=== PATIENT | female | born 1995 | race African-American/Black ===

== ENCOUNTER 2019-02-24 09:20 | Inpatient (IN) | payer OTHER ==
[2019-02-24 09:45] VITALS: BMI 21.1
--- NOTE | 2019-02-24 10:53 | HP ---
COWS - Scale Resting Pulse: 0= [place] 80 or Below Sweatin= Chills/Flushing Restless Observation: 3= Extraneous Movement Pupil Size: 0= Normal to Room Light Bone or Joint Aches: 4=Acute Joint/Muscle Pain Runny Nose/ Eye Tearin= Runny Nose/Eyes GI Upset > 30mins: 2= Nausea/Diarrhea Tremor Observation: 0= None Yawning Observation: 0= None Anxiety or Irritability: 1=Feels Anxious/Irritable Goose Flesh Skin: 0=Smooth Skin COWS Score: 13 CIWA Score - Admission Criteria OASAS Guidelines: Admission for Medically Managed Detox: Requires at least one of the followin. CIWA greater than 12 2. Seizures within the past 24 hours 3. Delirium tremens within the past 24 hours 4. Hallucinations within the past 24 hours 5. Acute intervention needed for co occurring medical disorder 6. Acute intervention needed for co occurring psychiatric disorder 7. Severe withdrawal that cannot be handled at a lower level of care (continued vomiting, continued diarrhea, abnormal vital signs) requiring intravenous medication and/or fluids 8. Admission ROS [facility] Allergies/Adverse Reactions: Allergies Allergy/AdvReac Type Severity Reaction Status Date / Time No Known Allergies Allergy Verified 02/24/19 09:45 History of Present Illness: pt here requesting detox from fentanyl use , states began 3 years ago w/ friends, denies ivdu , current daily use 10 pills " they say it's oxy but it 's fentanyl " , latest use yesterday evening, current symptoms as above , denies prior detox episodes. cocaine : " just a little bit " denies ivdu cannabis use : weekly tobacco ; denies etoh : denies denies other illicits pmhx / pshx : breast implants bilateral , psych : denies TG - M2F SHX : lives alone , unemployed , finances habit through friends . Search Terms: kalyan rae, 1995 Search Date: 02/24/2019 10:56:19 AM The Drug Utilization Report below displays all of the controlled substance prescriptions, if any, that your patient has filled in the last twelve months. The information displayed on this report is compiled from pharmacy submissions to the Department, and accurately reflects the information as submitted by the pharmacies. This report was requested by: Eli Thomas | Reference #: [id number] There are no results for the search terms that you entered. Exam Limitations: No Limitations - Ebola screening Have you traveled outside of the country in the last 21 days: No (N) Have you had contact with anyone from an Ebola affected area: No Do you have a fever: No - Review of Systems Constitutional: See HPI, Chills, Loss of Appetite EENT: reports: Other (denies vision / hearing loss) Respiratory: reports: No Symptoms reported Cardiac: reports: No Symptoms Reported GI: reports: See HPI, Diarrhea, Poor Appetite : reports: No Symptoms Reported Musculoskeletal: reports: See HPI, Muscle Pain Integumentary: reports: No Symptoms Reported Neuro: reports: No Symptoms reported Endocrine: reports: No Symptoms Reported Psychiatric: reports: Orientated x3 Patient History - Smoking Cessation Smoking history: Never smoked - Substances abused Oxycontin Other (specify): 30MG Substance route: Oral Frequency: Daily Amount used: 10 TABS DAILY Age of first use: 22 Date of last use: 02/22/19 Family Disease History - Family Disease History Family History: Denies (no children) Admission Physical Exam S - Vital Signs Vital Signs: Vital Signs - 24 hr 02/24/19 09:28 Temperature 97.2 F L Pulse Rate 72 Respiratory 18 Rate Blood Pressure 145/92 - Physical General Appearance: Yes: Mild Distress, Anxious HEENTM: Yes: EOMI, Normocephalic, Normal Voice Respiratory: Yes: Chest Non-Tender, Lungs Clear Neck: Yes: No masses,lesions,Nodules, Trachea in good position Cardiology: Yes: Regular Rhythm, Regular Rate Abdominal: Yes: Non Tender, Soft Musculoskeletal: Yes: full range of Motion, Gait Steady Extremities: Yes: Normal Range of Motion Neurological: Yes: Fully Oriented, Alert, Motor Strength 5/5 Integumentary: Yes: Warm - Diagnostic (1) Opioid abuse Current Visit: Yes Status: Acute (2) Cocaine abuse Current Visit: Yes Status: Acute Breathalyzer - Breathalyzer Breathalyzer: 0 Urine Drug Screen - Test Device Lot number: [id number] Expiration date: 11/20/20 - Control Is test valid?: Yes - Results Drug screen NEGATIVE: No Urine drug screen results: THC-Marijuana, NANETTE-Cocaine, FEN-Fentanyl Inpatient Rehab Admission - Rehab Decision to Admit Inpatient rehab admission?: No
[2019-02-24] MEDS ORDERED: MAGNESIUM CITRATE 300 ML BOTTLE PO PRN (11:08)
[2019-02-24] MEDS ORDERED: MAG HYDROX/AL HYDROX/SIMETH 30 ML UNIT-DOSE CUP PO PRN (11:08)
[2019-02-24] MEDS ORDERED: BISMUTH SUBSALICYLATE 262 MG/15 ML BTL PO PRN (11:08)
[2019-02-24] MEDS ORDERED: MENTHOL/PHENOL 1 EACH UD MM PRN (11:08)
[2019-02-24] MEDS ORDERED: hydrOXYzine PAMOATE 25 MG CAPSULE (FP) PO PRN (11:08)
[2019-02-24] MEDS ORDERED: MAGNESIUM HYDROX 2400MG/30ML ORAL SUSPENSION 30 ML CUP PO PRN (11:08)
[2019-02-24] MEDS ORDERED: ACETAMINOPHEN 325 MG TABLET (FP) PO PRN (11:08)
--- NOTE | 2019-02-24 17:16 | PN ---
[facility] Progress Note Note: c/o of opiate withdrawal symptoms one time dose methadone 10 mg ordered increase PO fluids continue to monitor
[2019-02-24] MEDS: IBUPROFEN 400 MG TABLET (FP) PO PRN (17:27)
[2019-02-24] MEDS ORDERED: METHADONE HCL 10 MG TABLET (FOR DETOX USE ONLY) PO ONE ×2 (17:30→23:00)
[2019-02-24] MEDS: MELATONIN 5 MG TABLETS PO PRN (22:02)
[2019-02-24] MEDS: THIAMINE HCL 100 MG TABLET (FP) PO SCH (22:02)
[2019-02-25] MEDS: IBUPROFEN 400 MG TABLET (FP) PO PRN ×2 (06:01→22:07)
[2019-02-25] MEDS ORDERED: METHADONE HCL 10 MG TABLET (FOR DETOX USE ONLY) PO ONE (10:00)
--- NOTE | 2019-02-25 10:19 | PN ---
[facility] COWS - Scale Resting Pulse: 0= [place] 80 or Below Sweatin=Flushed/Facial Moisture Restless Observation: 1= Difficult to Sit Still Pupil Size: 0= Normal to Room Light Bone or Joint Aches: 2= Severe Diffuse Aches Runny Nose/ Eye Tearin= Nasal Congestion GI Upset > 30mins: 0= None Tremor Observation of Outstretched Hands: 2= Slight Tremor Visible Yawning Observation: 2= >3x During Session Anxiety or Irritability: 2=Irritable/Anxious Goose Flesh Skin: 0=Smooth Skin COWS Score: 12 S Progress Note (SOAP) Subjective: chills shakes interrupted sleep body aches nausea sweats Objective: 02/25/19 10:18 Vital Signs Temperature 97.9 F 02/25/19 09:33 Pulse Rate 58 L 02/25/19 09:33 Respiratory Rate 18 02/25/19 09:33 Blood Pressure 128/71 02/25/19 09:33 O2 Sat by Pulse Oximetry (%) labs pending aaox3 ambulating no acute distress Assessment: 02/25/19 10:19 withdrawal sx Plan: continue detox increase fluids pending labs
[2019-02-25] MEDS: PRENATAL VITAMINS W/ FOLIC ACID TABLET (FP) PO SCH (10:38)
[2019-02-25] MEDS: ACETAMINOPHEN 325 MG TABLET (FP) PO PRN ×2 (10:41→17:36)
[2019-02-25 10:53] LABS: HEMATOCRIT 43.1 % (32.4-45.2); HEMOGLOBIN 14.3 GM/dL (10.7-15.3); MCH 30.9 pg (25.7-33.7); MCHC 33.1 g/dl (32.0-36.0); MEAN CELL VOLUME 93.3 fl (80-96); MEAN PLT VOLUME 9.3 fl (7.5-11.1); PLATELET COUNT 347 K/MM3 (134-434); RBC 4.61 M/mm3 (3.60-5.2); RDW 13.1 % (11.6-15.6)
[2019-02-25 11:10] LABS: ALBUMIN 3.8 g/dl (3.4-5.0); BILIRUBIN,TOTAL 0.8 mg/dL (0.2-1); CALCIUM 9.6 mg/dL (8.5-10.1); CREATININE 0.9 mg/dL (0.55-1.3); POTASSIUM 4.5 mmol/L (3.5-5.1)
[2019-02-25] MEDS: MELATONIN 5 MG TABLETS PO PRN (22:07)
[2019-02-25] MEDS: THIAMINE HCL 100 MG TABLET (FP) PO SCH (22:08)
[2019-02-26 08:40] LABS: RPR REACTIVE 1:4 (NONREACTIVE)
[2019-02-26] MEDS ORDERED: METHADONE HCL 10 MG TABLET (FOR DETOX USE ONLY) PO ONE (10:00)
--- NOTE | 2019-02-26 10:24 | PN ---
[facility] COWS - Scale Resting Pulse: 0= [place] 80 or Below Sweatin=Flushed/Facial Moisture Restless Observation: 0= Sits Still Pupil Size: 0= Normal to Room Light Bone or Joint Aches: 1= Mild Discomfort Runny Nose/ Eye Tearin= Nasal Congestion GI Upset > 30mins: 0= None Tremor Observation of Outstretched Hands: 1= Tremor [place], Not Seen Yawning Observation: 1= 1-2x During Session Anxiety or Irritability: 1=Feels Anxious/Irritable Goose Flesh Skin: 0=Smooth Skin COWS Score: 7 [facility] Progress Note (SOAP) Subjective: sweats feeling better tired Objective: 02/26/19 10:23 Vital Signs Temperature 97.6 F 02/26/19 09:28 Pulse Rate 62 02/26/19 09:28 Respiratory Rate 18 02/26/19 09:28 Blood Pressure 136/69 02/26/19 09:28 O2 Sat by Pulse Oximetry (%) Laboratory Tests 02/25/19 02/25/19 02/25/19 07:00 07:00 07:00 WBC 9.0 RBC 4.61 Hgb 14.3 Hct 43.1 MCV 93.3 MCH 30.9 MCHC 33.1 RDW 13.1 Plt Count 347 MPV 9.3 Sodium 137 Potassium 4.5 Chloride 104 Carbon Dioxide 27 Anion Gap 6 L BUN 12 Creatinine 0.9 Est GFR (CKD-EPI)AfAm 103.00 Est GFR (CKD-EPI)NonAf 88.87 Random Glucose 73 L Calcium 9.6 Total Bilirubin 0.8 AST 10 L ALT 17 Alkaline Phosphatase 71 Total Protein 7.0 Albumin 3.8 RPR Titer Reactive 1:4 H labs noted rpr reactive 1:4. pt states she was treated with 3injections of penicillin three months ago. aaox3 ambulating no acute distress Assessment: 02/26/19 10:25 mild withdrawal sx Plan: continue detox increase fluids d/c in am
[2019-02-26] MEDS: PRENATAL VITAMINS W/ FOLIC ACID TABLET (FP) PO SCH (12:46)
[2019-02-26] MEDS: ACETAMINOPHEN 325 MG TABLET (FP) PO PRN (12:48)
[2019-02-26 13:11] LABS: TREPONEMA ANTIBODY REACTIVE (NONREACTIVE)
[2019-02-26] MEDS: THIAMINE HCL 100 MG TABLET (FP) PO SCH (22:26)
[2019-02-26] MEDS: MELATONIN 5 MG TABLETS PO PRN (22:26)
[2019-02-27] MEDS ORDERED: METHADONE HCL 10 MG TABLET (FOR DETOX USE ONLY) PO ONE ×2 (06:00→10:00)
[2019-02-27 09:23] VITALS: BP 133/77; PULSE 68; TEMP 98.2
[2019-02-27] MEDS: PRENATAL VITAMINS W/ FOLIC ACID TABLET (FP) PO SCH (09:26)
--- NOTE | 2019-02-27 09:49 | DS ---
[facility] Detox Discharge Summary Admission Date: 02/24/19 Discharge Date: 02/27/19 - History Present History: Cocaine Dependence, Opioid Dependence - Physical Exam Results Vital Signs: Vital Signs Temperature 98.2 F 02/27/19 09:23 Pulse Rate 68 02/27/19 09:23 Respiratory Rate 18 02/27/19 09:23 Blood Pressure 133/77 02/27/19 09:23 O2 Sat by Pulse Oximetry (%) - Treatment Hospital Course: Detox Protocol Followed, Detoxed Safely, Responded well, Discharged Condition Good, Rehab Referral Accepted - Medication Discharge Medications: Ambulatory Orders NK [No Known Home Medication] 02/24/19 - Diagnosis (1) Cocaine abuse Current Visit: Yes Status: Chronic (2) Opioid abuse Current Visit: Yes Status: Chronic - AMA Did Patient Leave Against Medical Advice: No (pt declined rehab; going to her PCP)
[2019-02-28] MEDS ORDERED: METHADONE HCL 5 MG TABLET (FOR DETOX USE ONLY) PO ONE (06:00)
== END 2019-02-27 09:31 | disposition home or self-care (01) | DRG 773 ==
LOC: YASAS 09:20 → Y6N 11:13
PROVIDERS: ADMIT Surgery; ATTEND Surgery
PROC: HZ2ZZZZ Detoxification Services for Substance Abuse Treatment (ICD-10-PCS; principal; 2019-02-24)
DX: F11.23 Opioid dependence with withdrawal (principal); F14.20 Cocaine dependence, uncomplicated; F12.20 Cannabis dependence, uncomplicated
CPT/HCPCS: 36415; 80053; 85027; 86593; 86780